=== PATIENT | female | born 1955 | race Caucasian/White ===

== ENCOUNTER 2023-06-22 10:11 | Emergency (ER) | payer BC, MEDICARE ==
[2023-06-22 10:40] VITALS: TEMP 97.6
[2023-06-22] MEDS ORDERED: ACETAMINOPHEN TAB 500 MG TAB PO STA (10:53)
--- NOTE | 2023-06-22 11:06 | ED ---
General Adult HPI - General Chief complaint: Chest Pain Stated complaint: RIB PAIN Time Seen by Provider: 06/22/23 10:40 Source: patient, EMS, RN notes reviewed Mode of arrival: EMS Limitations: no limitations - History of Present Illness Initial comments: Patient is a 60-year-old female presented ER via EMS with a chief complaint of right-sided chest pain. Patient has a past medical history significant for Rheumatoid arthritis. Patient states about a week ago she was cleaning up off the floor and he elbow pushed against her ribs creating an "eggshell cracking sound". Patient states she has been experiencing pain ever since. The pain is worse with movements and deep breaths. She denies shortness of breath but states she is unable to take a deep breath due to pain. Patient reports she's been taking ibuprofen and Tylenol with slight relief. Her last dose of ibuprofen was at 8:30 this morning. She denies any chest palpitations, headaches, abdominal pain, recent illness, cough, or urinary symptoms. - Related Data Home Medications Medication Instructions Recorded Confirmed Hydrocodone/Acetaminophen [[place] 1 each PO Q6H PRN 02/13/14 02/13/14 10-325] lisinopriL [Zestril] 10 mg PO DAILY 02/13/14 02/13/14 Previous Rx's Medication Instructions Recorded HYDROcodone/APAP 10-325MG [[place] 1 each PO Q6H PRN #20 tab 02/13/14 10] Ibuprofen [Motrin] 800 mg PO Q6HR PRN #20 tab 02/13/14 Orphenadrine [Norflex] 100 mg PO Q12H #14 tablet.er 02/13/14 Cyclobenzaprine [Flexeril] 5 mg PO TID PRN #15 tablet 06/22/23 Lidocaine 5% Patch [Lidoderm 5% 1 patch TOPICAL DAILY #30 patch 06/22/23 Patch] Allergies Allergy/AdvReac Type Severity Reaction Status Date / Time Beta-Adrenergic Agents Allergy Rash/Hives Verified 02/13/14 06:55 Beta-Blockers Allergy Dyspnea Verified 02/13/14 06:55 (Beta-Adrenergic Bloc Cephalosporins Allergy Rash/Hives Verified 02/13/14 06:55 clarithromycin [From Biaxin] Allergy Wheezing Verified 02/13/14 06:55 diazepam [From Valium] Allergy Unknown Verified 02/13/14 06:55 Macrolide Antibiotics Allergy Unknown Verified 02/13/14 06:55 propranolol HCl Allergy Unknown Verified 02/13/14 06:55 [From Inderal LA] regadenoson Allergy Unknown Verified 06/22/23 10:25 Review of Systems ROS Statement: Those systems with pertinent positive or pertinent negative responses have been documented in the HPI. ROS Other: All systems not noted in ROS Statement are negative. Past Medical History Past Medical History: Hypertension Additional Past Medical History / Comment(s): arthritis History of Any Multi-Drug Resistant Organisms: None Reported Past Surgical History: Adenoidectomy, Appendectomy, Cholecystectomy, Tonsillectomy Additional Past Surgical History / Comment(s): right ear, throat, back, right wrist, Past Psychological History: No Psychological Hx Reported Smoking Status: Current every day smoker Past Alcohol Use History: None Reported Past Drug Use History: None Reported General Exam Limitations: no limitations General appearance: alert, in no apparent distress Respiratory exam: Present: normal lung sounds bilaterally, other (pain with deep inspiration ). Absent: respiratory distress, wheezes, rales, rhonchi, stridor Cardiovascular Exam: Present: regular rate, normal rhythm, normal heart sounds. Absent: systolic murmur, diastolic murmur, rubs, gallop, clicks GI/Abdominal exam: Present: soft, normal bowel sounds. Absent: distended, tenderness, guarding, rebound, rigid Back exam: Present: other (pain to palpitation of right lateral mid back with radiation to the front. pain with palpitation of right anterior chest wall) Course Vital Signs 06/22/23 06/22/23 06/22/23 10:15 10:17 11:00 Temperature 97.6 F Pulse Rate 64 Respiratory 20 18 Rate Blood Pressure 181/92 155/92 O2 Sat by Pulse 99 98 97 Oximetry 06/22/23 06/22/23 12:00 12:59 Temperature Pulse Rate 78 76 Respiratory 17 18 Rate Blood Pressure 141/84 145/89 O2 Sat by Pulse 96 96 Oximetry Medical Decision Making - Medical Decision Making Was pt. sent in by a medical professional or institution (, PA, [employer], urgent care, hospital, or [facility]...) When possible be specific @ -No Did you speak to anyone other than the patient for history (EMS, parent, family, police, friend...)? What history was obtained from this source @ -EMS Did you review nursing and triage notes (agree or disagree)? Why? @ -I reviewed and agree with nursing and triage notes Were old charts reviewed (outside hosp., previous admission, EMS record, old EKG, old radiological studies, urgent care reports/EKG's, [facility] records)? Report findings @ -No old charts were reviewed Differential Diagnosis (chest pain, altered mental status, abdominal pain women, abdominal pain men, vaginal bleeding, weakness, fever, dyspnea, syncope, headache, dizziness, GI bleed, back pain, seizure, CVA, palpatations, mental health, musculoskeletal)? @ -Differential Musculoskeletal Muscular strain, contusion, ligament sprain, fracture, arthritis, septic arthritis, bursitis, cellulitis, muscle spasm, nerve compression, DVT, arterial occlusion, herpes zoster, electrolyte abnormality, tumor.... This is not meant to be in all inclusive list EKG interpreted by me (3pts min.). @ -None X-rays interpreted by me (1pt min.). @ -X-ray of ribs with AP chest demonstrates no acute processes. CT interpreted by me (1pt min.). @ -None done U/S interpreted by me (1pt. min.). @ -None done What testing was considered but not performed or refused? (CT, X-rays, U/S, labs)? Why? @ -None What meds were considered but not given or refused? Why? @ -None Did you discuss the management of the patient with other professionals (professionals i.e. , PA, [employer], lab, RT, psych nurse, social work therapist, inspector and hand packager, teacher, investigation officer, piano case maker)? Give summary @ -No Was smoking cessation discussed for >3mins.? @ -No Was critical care preformed (if so, how long)? @ -No Were there social determinants of health that impacted care today? How? (Homelessness, low income, unemployed, alcoholism, drug addiction, transportation, low edu. Level, literacy, decrease access to med. care, detention, rehab)? @ -No Was there de-escalation of care discussed even if they declined (Discuss DNR or withdrawal of care, Hospice)? DNR status @ -No What co-morbidities impacted this encounter? (DM, HTN, Smoking, COPD, CAD, Cancer, CVA, ARF, Chemo, Hep., AIDS, mental health diagnosis, sleep apnea, morbid obesity)? @ -None Was patient admitted / discharged? Hospital course, mention meds given and route, prescriptions, significant lab abnormalities, going to OR and other pertinent info. @ -Discharge. X-ray of her ribs with AP chest demonstrates no acute processes, fractures, dislocations. No evidence of flail chest or pneumothroax on examination. Patient received 1 g of by mouth Tylenol in the ER for pain control. Patient will be prescribed lidocaine patches and a muscle relaxer at discharge. Patient advised to use incentive spirometer 2-3 times a day for pneumonia prophylaxis and to take [id number] Tylenol and Motrin for pain control. Patient states she has an incentive spirometer at home and does not need another one. Patient will be discharged stable condition. Patient expressed understanding. Undiagnosed new problem with uncertain prognosis? @ -No Drug Therapy requiring intensive monitoring for toxicity (Heparin, Nitro, Insulin, Cardizem)? @ -No Were any procedures done? @ -No Diagnosis/symptom? @ -Rib contusion Acute, or Chronic, or Acute on Chronic? @ -Acute Uncomplicated (without systemic symptoms) or Complicated (systemic symptoms)? @ -Uncomplicated Side effects of treatment? @ -No Exacerbation, Progression, or Severe Exacerbation? @ -No Poses a threat to life or bodily function? How? (Chest pain, [place], [place], pneumonia, PE, COPD, DKA, ARF, appy, cholecystitis, CVA, Diverticulitis, Homicidal, Suicidal, threat to staff... and all critical care pts) @ -No Disposition Clinical Impression: Rib contusion Disposition: HOME SELF-CARE Condition: Stable Instructions (If sedation given, give patient instructions): Rib Contusion (ED) Additional Instructions: Please return to the Emergency Department if symptoms worsen or any other concerns. Patient advised to use incentive spirometer 2-3 times a day for pneumonia prophylaxis and to take [id number] Tylenol Motrin for pain control. Prescriptions: Cyclobenzaprine [Flexeril] 5 mg PO TID PRN #15 tablet PRN Reason: Muscle Spasm Lidocaine 5% Patch [Lidoderm 5% Patch] 1 patch TOPICAL DAILY #30 patch Is patient prescribed a controlled substance at d/c from ED?: No Referrals: Arthur Singleton [Primary Care Provider] - 1-2 days Time of Disposition: 12:35
[2023-06-22 11:51] VITALS: RESP 18
--- NOTE | 2023-06-22 11:52 | XR ---
EXAMINATION TYPE: XR ribs RT w pa chest xray DATE OF EXAM: 06/22/2023 COMPARISON: 07/05/2011 TECHNIQUE: PA and lateral views submitted. HISTORY: Pain FINDINGS: The lungs are clear and there is no pneumothorax, pleural effusion, or focal pneumonia. Mild cardiom egaly and no overt failure. Osseous structures demonstrate hypertrophic and degenerative changes of t he spine. Emphysematous changes are seen. There is bilateral AC joint arthropathy. Rib cage is grossl y intact with no acute displaced rib fracture. Surgical clips in the right upper quadrant. IMPRESSION: 1. No acute process.
[2023-06-22 13:00] VITALS: BP 145/89; PULSE 76
== END 2023-06-22 13:00 | disposition home or self-care (01) ==
LOC: EC 10:11
DX: S20.211A Contusion of right front wall of thorax, initial encounter (principal); I10 Essential (primary) hypertension; F17.200 Nicotine dependence, unspecified, uncomplicated; Z79.899 Other long term (current) drug therapy; Z88.8 Allergy status to other drugs, medicaments and biological substances; X50.9XXA Other and unspecified overexertion or strenuous movements or postures, initial encounter
CPT/HCPCS: 99283

== ENCOUNTER → 2024-06-25 | Outpatient (CLI) | payer MEDICARE ==
--- NOTE | 2024-06-28 20:00 | US ---
EXAMINATION TYPE: US kidneys/renal and bladder DATE OF EXAM: 06/25/2024 COMPARISON: NONE CLINICAL INDICATION: Female, 69 years old with history of R31.9 HEMATURIA; protein in urine TECHNIQUE: Grayscale imaging of the bilateral kidneys and urinary bladder: FINDINGS: EXAM MEASUREMENTS: Right Kidney: 13.0x5.3x5.6 cm Left Kidney: 10.7x4.6x5.2 cm Right Kidney: hydro Left Kidney: hydro Bladder: wnl Bilateral Jets seen: Yes No nephrolithiasis is seen. No masses are identified. The urinary bladder is anechoic. IMPRESSION: Mild hydronephrosis suggested bilaterally right greater than left with uncertain etiology. [facility], , 06/28/2024 7:57 PM
--- NOTE | 2024-06-30 12:56 | MM ---
Reason for Exam: Screening (asymptomatic). Last mammogram was performed 3 year(s) and 1 month(s) ago. Patient History: Menarche at age 11. First Full-Term at age 21. Left ovary removed at age 23. Right ovary removed at age 28. Hysterectomy at age 23. Postmenopausal. Risk Values: Maegan 5 year model risk: 1.7%. NCI Lifetime model risk: 5.2%. Prior Study Comparison: 10/27/1994 Screening Mammogram, Unknown. 04/13/1998 Bilateral Special View Mammogram, [facility]. 05/05/2004 Bilateral Screening Mammogram, [facility]. 06/11/2018 Bilateral MG 3D screening mammo w/cad, [facility]. 06/17/2021 Bilateral MG 3D screening mammo w/cad, [facility]. Tissue Density: The breasts are almost entirely fatty. Findings: Analyzed By CAD. Right breast: There is no suspicious group of microcalcifications or new suspicious mass. Left breast: There is no suspicious group of microcalcifications or new suspicious mass. Overall Assessment: Negative, BI-RAD 1 Management: Screening Mammogram of both breasts in [address] [facility] will attempt to contact patient to return for supplemental views and ultrasound if indicated. Patient should continue monthly self-breast exams. A clinical breast exam by your physician is recommended on an annual basis. This exam should not preclude additional follow-up of suspicious palpable abnormalities. Note on Maegan scores and lifetime risk: 1. A Maegan score greater than 3% is considered moderate risk. If this is the case, consider specialist referral to assess eligibility for a risk reducing agent. 2. If overall lifetime risk for the development of breast cancer is 20% or higher, the patient may qualify for future screening with alternating mammogram and breast MRI. [facility], , 06/30/2024 12:53 PM. Electronically signed and approved by: Kartik Tijerina DO
== END | disposition home or self-care (01) ==
LOC: RADUSWWP 14:25
PROVIDERS: ATTEND Family Medicine
DX: Z12.31 Encounter for screening mammogram for malignant neoplasm of breast (principal); N13.30 Unspecified hydronephrosis; R31.9 Hematuria, unspecified; Z78.0 Asymptomatic menopausal state; Z90.722 Acquired absence of ovaries, bilateral
CPT/HCPCS: 76770; 77063; 77067